=== PATIENT | female | born 1955 ===

== ENCOUNTER → 2019-12-18 | Outpatient (CLI) | payer OTHER ==
--- NOTE | 2019-12-19 13:26 | MM ---
Reason for exam: screening (asymptomatic). Last mammogram was performed 2 years and 8 months ago. Physical Findings: A clinical breast exam by your physician is recommended on an annual basis and results should be correlated with mammographic findings. MG Screening Mammo w CAD Bilateral CC and MLO view(s) were taken. Prior study comparison: April 27, 2017, mammogram, performed at [facility]. July 10, 2015, mammogram, performed at [facility]. There are scattered fibroglandular densities. No significant changes when compared with prior studies. ASSESSMENT: Benign, BI-RAD 2 RECOMMENDATION: Routine screening mammogram of both breasts in 1 year.
== END | disposition home or self-care (01) ==
LOC: RADMAMWWP 07:56
PROVIDERS: ATTEND Family Medicine
DX: Z12.31 Encounter for screening mammogram for malignant neoplasm of breast (principal)
CPT/HCPCS: 77067

== ENCOUNTER → 2020-06-17 | Outpatient (CLI) | payer OTHER ==
--- NOTE | 2020-06-17 15:44 | US ---
EXAMINATION TYPE: US thyroid st tissue head/neck DATE OF EXAM: 06/17/2020 COMPARISON: NONE CLINICAL HISTORY: E06.3 Autoimmune thyroiditis, patient diagnosed when she was 19. GLAND SIZE: Right Lobe: 2.9 x 0.8 x 1.1 cm Overall Parenchyma: heterogenous Left Lobe: 2.5 x 0.6 x 0.5 cm Overall Parenchyma: heterogeneous Isthmus Thickness: 0.3 cm NODULES RIGHT: # of nodules measured on right: 0 LEFT: # of nodules measured on left: 0 ISTHMUS: # of nodules measured in the isthmus: Bilateral neck scanned, no evidence of lymphadenopathy. IMPRESSION: 1. Heterogenous small thyroid. No suspicious nodules
== END | disposition home or self-care (01) ==
LOC: RADUSWWP 12:14
PROVIDERS: ATTEND Family Medicine
DX: R93.89 Abnormal findings on diagnostic imaging of other specified body structures (principal); E06.3 Autoimmune thyroiditis
CPT/HCPCS: 76536

== ENCOUNTER 2020-07-29 06:28 | Day surgery (SDC) | payer OTHER ==
[2020-07-25 12:59] VITALS: BMI 53.9
[2020-07-29 06:58] VITALS: TEMP 98.3
[2020-07-29] MEDS ORDERED: LACTATED RINGERS 1,000 ML IV ONE (07:06)
[2020-07-29] MEDS ORDERED: PROPOFOL 10 MG/ML 20 ML VIAL IV ONE (07:44)
--- NOTE | 2020-07-29 08:14 | P.PCN ---
Date of Procedure: 07/29/20 Description of Procedure: BRIEF HISTORY: Patient is a 65-year-old female presenting for outpatient colonoscopy for screening for malignant neoplasm of the colon. Last colonoscopy 10 years ago. No family history of colon cancer. No change in bowel habits. PROCEDURE PERFORMED: Colonoscopy with polypectomy. PREOPERATIVE DIAGNOSIS: Screening for malignant neoplasm of the colon, last colonoscopy 10 years ago. ESTIMATED BLOOD LOSS: Minimal. IV sedation per Anesthesia. PROCEDURE: After informed consent was obtained, the patient, was brought into the endoscopy unit. IV sedation was administered by Anesthesia under continuous monitoring. Digital rectal examination was normal. Initially the Olympus CF-190 flexible video colonoscope was then inserted in the rectum, gradually advanced into the cecum without any difficulty. Careful examination was performed as the scope was gradually being withdrawn. Ileocecal valve and the appendiceal orifice were visualized and appeared normal. Prep was excellent. Mucosa of the cecum, ascending colon, transverse colon, descending colon, sigmoid colon, and rectum appeared normal. One diminutive 2 mm rectal polyp removed cold forcep polypectomy. A few scattered diverticula noted in the sigmoid colon. Retroflexion was performed in the rectum and no lesions were seen, low-grade internal hemorrhoids. The patient tolerated the procedure well. IMPRESSION: Diminutive rectal polyp removed with cold forceps. Mild sigmoid diverticulosis. RECOMMENDATIONS: Findings of this examination were discussed with the patient and her family. Okay to resume diet. Okay to resume medications. Await pathology from polypectomy. Recommend repeat colonoscopy in 7 years pending pathology from polypectomy.
[2020-07-29 08:16] VITALS: RESP 16
[2020-07-29 08:34] VITALS: BP 137/76; PULSE 56
== END 2020-07-29 09:07 | disposition home or self-care (01) ==
LOC: ORWHC2ENDO 06:28
PROVIDERS: ATTEND Internal Medicine
DX: Z12.11 Encounter for screening for malignant neoplasm of colon (principal); K62.1 Rectal polyp; K57.30 Diverticulosis of large intestine without perforation or abscess without bleeding; K64.8 Other hemorrhoids; G47.33 Obstructive sleep apnea (adult) (pediatric); E07.9 Disorder of thyroid, unspecified; K21.9 Gastro-esophageal reflux disease without esophagitis; E66.01 Morbid (severe) obesity due to excess calories; Z87.891 Personal history of nicotine dependence; Z79.899 Other long term (current) drug therapy; Z79.890 Hormone replacement therapy; Z90.710 Acquired absence of both cervix and uterus; Z98.890 Other specified postprocedural states; Z96.651 Presence of right artificial knee joint; Z99.89 Dependence on other enabling machines and devices; Z68.43 Body mass index [BMI] 50.0-59.9, adult
CPT/HCPCS: 88305; 45380; J2704

== ENCOUNTER 2020-10-11 16:40 | Emergency (ER) | payer OTHER ==
[2020-10-11 16:46] VITALS: TEMP 98.2
[2020-10-11] MEDS ORDERED: SODIUM CHLORIDE 0.9% 1,000 ML IV STA (17:11)
[2020-10-11] MEDS ORDERED: ACETAMINOPHEN TAB 325 MG TAB PO STA (17:12)
--- NOTE | 2020-10-11 17:21 | ED ---
Dizziness HPI - General Chief Complaint: Syncope Stated Complaint: Fall, Head injury Time Seen by Provider: 10/11/20 16:48 Source: patient, family ( at bedside), RN notes reviewed Mode of arrival: wheelchair Limitations: no limitations - History of Present Illness Initial Comments: 65-year-old white female patient presents to the emergency room with her after experiencing a syncopal episode while having a bowel movement on the toilet approximately one hour prior to arrival. Patient states that she was in the bathroom with some abdominal pain after something she ate today gave her abdominal cramps. States was having diarrhea when she became nauseated and passed out. states he heard the fall yelled out to her, when she did not respond, he found her on the bathroom floor. He states that he called out to her a couple times as he tried to push the door open and after 30 seconds she became alert. Pt complaining of a bump on the back of her head. Patient denies any chest pain, shortness of breath, fevers or recent illness. Patient with history of GERD, hypertension, hypothyroidism, and sleep apnea. Patient denies use of any anticoagulants or antiplatelets. Patient states she put ice on occipital hematoma which has relieved some of the pain. Patient denies cervical spine tenderness Timing: sudden onset History of Same: No Severity: mild Improves With: other (ice) Worsens With: nothing Associated Symptoms: other (nausea, diarrhea) - Related Data Home Medications Medication Instructions Recorded Confirmed Amlodipine Besylate/Valsartan 1 each PO DAILY 07/25/20 07/29/20 [Amlodipine-Valsartan 5-160 mg] Ascorbic Acid [Vitamin C] 500 mg PO DAILY 07/25/20 07/29/20 Cholecalciferol [Vitamin D3 (25 125 mcg PO DAILY 07/25/20 07/29/20 Mcg = 1000 Iu)] Escitalopram Oxalate [Lexapro] 10 mg PO DAILY 07/25/20 07/29/20 Hydrochlorothiazide 12.5 mg PO DAILY 07/25/20 07/29/20 [hydroCHLOROthiazide] Levothyroxine Sodium [Synthroid] 175 mcg PO MOTUWETHFRSA 07/25/20 07/29/20 Metoprolol Succinate (ER) [Toprol 50 mg PO DAILY 07/25/20 07/29/20 Xl] Omeprazole [PriLOSEC] 20 mg PO AC-BRKFST 07/25/20 07/29/20 Red Yeast Rice 1,200 mg PO BID 07/25/20 07/29/20 Allergies Allergy/AdvReac Type Severity Reaction Status Date / Time strawberry Allergy Rash/Hives Verified 10/11/20 16:46 tree nut Allergy Anaphylaxis Verified 10/11/20 16:46 Review of Systems ROS Statement: Those systems with pertinent positive or pertinent negative responses have been documented in the HPI. ROS Other: All systems not noted in ROS Statement are negative. Past Medical History Past Medical History: GERD/Reflux, Hypertension, Sleep Apnea/CPAP/BIPAP, Thyroid Disorder Additional Past Medical History / Comment(s): C PAP History of Any Multi-Drug Resistant Organisms: None Reported Past Surgical History: Hysterectomy, Joint Replacement Additional Past Surgical History / Comment(s): RIGHT HEEL SPUR REMOVED, BILATERAL CARPAL TUNNEL RELEASE,TOTAL RIGHT KNEE Past Anesthesia/Blood Transfusion Reactions: No Reported Reaction Past Psychological History: Depression Smoking Status: Former smoker Past Alcohol Use History: None Reported Past Drug Use History: None Reported - Past Family History Mother Family Medical History: No Reported History General Exam Limitations: no limitations General appearance: alert, in no apparent distress Head exam: Present: other (hematoma) Eye exam: Present: normal appearance, PERRL, EOMI. Absent: scleral icterus, conjunctival injection, nystagmus, periorbital swelling, periorbital tenderness ENT exam: Present: normal exam, normal oropharynx, mucous membranes moist Neck exam: Present: normal inspection, full ROM. Absent: tenderness, meningismus, lymphadenopathy Respiratory exam: Present: normal lung sounds bilaterally. Absent: respiratory distress, wheezes, rales, rhonchi, stridor, chest wall tenderness, accessory muscle use Cardiovascular Exam: Present: regular rate, normal rhythm, normal heart sounds. Absent: systolic murmur, diastolic murmur, rubs, gallop, clicks, JVD GI/Abdominal exam: Present: soft, normal bowel sounds. Absent: distended, tenderness, guarding, rebound, rigid Extremities exam: Present: normal inspection, full ROM, normal capillary refill. Absent: tenderness, pedal edema, joint swelling, calf tenderness Left Knee exam: Present: abrasion Back exam: Present: normal inspection. Absent: tenderness, CVA tenderness (R), CVA tenderness (L) Neurological exam: Present: alert, oriented X3, CN II-XII intact Psychiatric exam: Present: normal affect, normal mood Skin exam: Present: warm, dry, intact, normal color. Absent: rash, cyanosis, diaphoretic, erythema, pallor, mottled Course Vital Signs 10/11/20 16:43 Temperature 98.2 F Pulse Rate 62 Respiratory 18 Rate Blood Pressure 159/81 O2 Sat by Pulse 99 Oximetry - Reevaluation(s) Reevaluation #1: 10/11/20 18:13 Patient feeling better after Tylenol. Being taken to CAT scan now Time: 18:13 Reevaluation #2: 10/11/20 18:40 Patient up ambulating with steady gait to the bathroom EKG Findings - EKG Results: EKG: WNL, sinus rhythm (Ventricular rate of 59, MD interval 0.154, QRS of 0.96, QTc of .433) EKG shows: bradycardia Medical Decision Making - Medical Decision Making EKG shows sinus bradycardia with ventricular rate of 59 otherwise normal EKG. CBC within normal limits. Chest x-ray shows no acute pulmonary disease, no masses, no infiltrates. CT of brain and C-spine showed no midline shift or intracranial hemorrhage. Ventricles are normal. Patient feeling back to normal . This was likely a vasovagal episode. Will discharge home with her injections to follow-up with her primary care doctor in 1 week. - Lab Data Result diagrams: 10/11/20 17:11 10/11/20 17:11 Lab Results 10/11/20 10/11/20 10/11/20 Range/Units 17:11 17:11 17:11 WBC 7.6 (3.8-10.6) k/uL RBC 4.91 (3.80-5.40) m/uL Hgb 15.1 (11.4-16.0) gm/dL Hct 43.5 (34.0-46.0) % MCV 88.6 (80.0-100.0) fL MCH 30.8 (25.0-35.0) pg MCHC 34.7 (31.0-37.0) g/dL RDW 12.9 (11.5-15.5) % Plt Count 212 (150-450) k/uL MPV 7.7 Neutrophils % 72 % Lymphocytes % 18 % Monocytes % 6 % Eosinophils % 3 % Basophils % 1 % Neutrophils # 5.5 (1.3-7.7) k/uL Lymphocytes # 1.4 (1.0-4.8) k/uL Monocytes # 0.4 (0-1.0) k/uL Eosinophils # 0.2 (0-0.7) k/uL Basophils # 0.1 (0-0.2) k/uL PT 10.1 (9.0-12.0) sec INR 0.9 (<1.2) APTT 23.1 (22.0-30.0) sec Sodium 139 (137-145) mmol/L Potassium 3.7 (3.5-5.1) mmol/L Chloride 103 (98-107) mmol/L Carbon Dioxide 28 (22-30) mmol/L Anion Gap 8 mmol/L BUN 16 (7-17) mg/dL Creatinine 0.92 (0.52-1.04) mg/dL Est GFR (CKD-EPI)AfAm 77 (>60 ml/min/1.73 sqM) Est GFR (CKD-EPI)NonAf 67 (>60 ml/min/1.73 sqM) Glucose 109 H (74-99) mg/dL Calcium 9.9 (8.4-10.2) mg/dL Total Bilirubin 0.4 (0.2-1.3) mg/dL AST 38 H (14-36) U/L ALT 32 (4-34) U/L Alkaline Phosphatase 111 (38-126) U/L Troponin I (0.000-0.034) ng/mL Total Protein 7.7 (6.3-8.2) g/dL Albumin 4.5 (3.5-5.0) g/dL Urine Color Urine Appearance (Clear) Urine pH (5.0-8.0) Ur Specific [place] (1.001-1.035) Urine Protein (Negative) Urine Glucose (UA) (Negative) Urine Ketones (Negative) Urine Blood (Negative) Urine Nitrite (Negative) Urine Bilirubin (Negative) Urine Urobilinogen (<2.0) mg/dL Ur Leukocyte Esterase (Negative) Urine RBC (0-5) /hpf Urine WBC (0-5) /hpf Urine Bacteria (None) /hpf Urine Mucus (None) /hpf 10/11/20 10/11/20 Range/Units 17:11 17:35 WBC (3.8-10.6) k/uL RBC (3.80-5.40) m/uL Hgb (11.4-16.0) gm/dL Hct (34.0-46.0) % MCV (80.0-100.0) fL MCH (25.0-35.0) pg MCHC (31.0-37.0) g/dL RDW (11.5-15.5) % Plt Count (150-450) k/uL MPV Neutrophils % % Lymphocytes % % Monocytes % % Eosinophils % % Basophils % % Neutrophils # (1.3-7.7) k/uL Lymphocytes # (1.0-4.8) k/uL Monocytes # (0-1.0) k/uL Eosinophils # (0-0.7) k/uL Basophils # (0-0.2) k/uL PT (9.0-12.0) sec INR (<1.2) APTT (22.0-30.0) sec Sodium (137-145) mmol/L Potassium (3.5-5.1) mmol/L Chloride (98-107) mmol/L Carbon Dioxide (22-30) mmol/L Anion Gap mmol/L BUN (7-17) mg/dL Creatinine (0.52-1.04) mg/dL Est GFR (CKD-EPI)AfAm (>60 ml/min/1.73 sqM) Est GFR (CKD-EPI)NonAf (>60 ml/min/1.73 sqM) Glucose (74-99) mg/dL Calcium (8.4-10.2) mg/dL Total Bilirubin (0.2-1.3) mg/dL AST (14-36) U/L ALT (4-34) U/L Alkaline Phosphatase (38-126) U/L Troponin I <0.012 (0.000-0.034) ng/mL Total Protein (6.3-8.2) g/dL Albumin (3.5-5.0) g/dL Urine Color Light Yellow Urine Appearance Clear (Clear) Urine pH 5.0 (5.0-8.0) Ur Specific [place] 1.007 (1.001-1.035) Urine Protein Negative (Negative) Urine Glucose (UA) Negative (Negative) Urine Ketones Negative (Negative) Urine Blood Negative (Negative) Urine Nitrite Negative (Negative) Urine Bilirubin Negative (Negative) Urine Urobilinogen <2.0 (<2.0) mg/dL Ur Leukocyte Esterase Small H (Negative) Urine RBC 1 (0-5) /hpf Urine WBC 7 H (0-5) /hpf Urine Bacteria Many H (None) /hpf Urine Mucus Rare H (None) /hpf Disposition Clinical Impression: Vasovagal syncope Disposition: HOME SELF-CARE Condition: Good Instructions (If sedation given, give patient instructions): Concussion (ED), Syncope (ED) Additional Instructions: Return if any worsening symptoms including worsening headache. Take Tylenol for pain and increase your fluid intake. Follow-up with the primary care doctor in 1 week. Is patient prescribed a controlled substance at d/c from ED?: No Referrals: Betty Munoz MD [Primary Care Provider] - 1-2 days Time of Disposition: 19:33
[2020-10-11 17:47] LABS: Basophils # (A) 0.1 k/uL (0-0.2); Basophils % (A) 1 %; Eosinophils # (A) 0.2 k/uL (0-0.7); Eosinophils % (A) 3 %; HCT 43.5 % (34.0-46.0); HGB 15.1 gm/dL (11.4-16.0); Lymphocytes # (A) 1.4 k/uL (1.0-4.8); Lymphocytes % (A) 18 %; MCH 30.8 pg (25.0-35.0); MCHC 34.7 g/dL (31.0-37.0); MCV 88.6 fL (80.0-100.0); Mean Platelet Volume 7.7; Monocytes # (A) 0.4 k/uL (0-1.0); Monocytes % (A) 6 %; Neutrophils # (A) 5.5 k/uL (1.3-7.7); Neutrophils % (A) 72 %; Platelet Count 212 k/uL (150-450); RBC 4.91 m/uL (3.80-5.40); RDW 12.9 % (11.5-15.5); WBC 7.6 k/uL (3.8-10.6)
[2020-10-11 17:59] LABS: INR 0.9 (<1.2); Partial Thromboplastin Time 23.1 sec (22.0-30.0); Prothrombin Time 10.1 sec (9.0-12.0)
--- NOTE | 2020-10-11 17:59 | XR ---
EXAMINATION TYPE: XR chest 2V DATE OF EXAM: 10/11/2020 COMPARISON: NONE HISTORY: Syncope TECHNIQUE: 2 views FINDINGS: There is no heart failure nor confluent pneumonic infiltrate. Costophrenic angles are clear . There are no hilar masses. Bony thorax is intact. IMPRESSION: No active cardiopulmonary disease.
[2020-10-11 18:04] LABS: Albumin 4.5 g/dL (3.5-5.0); Calcium 9.9 mg/dL (8.4-10.2); Potassium 3.7 mmol/L (3.5-5.1); Total Bilirubin 0.4 mg/dL (0.2-1.3); Total Protein 7.7 g/dL (6.3-8.2)
[2020-10-11 18:54] LABS: Appearance,Urine Clear (Clear); Bacteria,Urine Many /hpf; Bilirubin,Urine Negative (Negative); Blood,Urine Negative (Negative); Color,Urine Light Yellow; Glucose,Urine (UA) Negative (Negative); Ketones,Urine Negative (Negative); Leukocyte Esterase,Urine Small (Negative); Mucus,Urine Rare /hpf; Nitrite,Urine Negative (Negative); Protein,Urine Negative (Negative); RBC,Urine 1 /hpf (0-5); Specific Gravity,Urine 1.007 (1.001-1.035); Urobilinogen,Urine <2.0 mg/dL (<2.0); WBC,Urine 7 /hpf (0-5)
--- NOTE | 2020-10-11 19:13 | CT ---
EXAMINATION TYPE: CT brain heikeine wo con DATE OF EXAM: 10/11/2020 COMPARISON: None HISTORY: Sycope, injury to back of head CT DLP: 4.9 mGycm Automated exposure control for dose reduction was used. Images were obtained of the brain without contrast. Ventricles and sulci appear normal. There is no mass effect nor midline shift. There is no sign of in tracranial hemorrhage. Calvarium is intact. Skull base is intact. The cervical vertebra have normal alignment. Posterior elements are intact. There is mild spurring of the endplates from C4 to C7. Facet joints are intact. There is minimal cervical hypertrophic facet a rthropathy. Prevertebral soft tissues are intact. IMPRESSION: Negative CT scan of the brain. Minimal degenerative changes in the cervical spine. No fracture.
[2020-10-11 19:52] VITALS: BP 127/66; PULSE 61; RESP 16
== END 2020-10-11 19:52 | disposition home or self-care (01) ==
LOC: EC 16:40
DX: R55 Syncope and collapse (principal); K21.9 Gastro-esophageal reflux disease without esophagitis; I10 Essential (primary) hypertension; G47.30 Sleep apnea, unspecified; E03.9 Hypothyroidism, unspecified; Z87.891 Personal history of nicotine dependence
CPT/HCPCS: 36415; 70450; 71046; 72125; 80053; 81001; 84484; 85025; 85610; 85730; 93005; 96360; 99284

== ENCOUNTER → 2021-11-23 | Outpatient (CLI) | payer OTHER ==
--- NOTE | 2021-11-23 15:53 | XR ---
Lumbar spine HISTORY: M 54.50 3 views the lumbar spine No comparisons Lumbar vertebral bodies show preserved height and alignment. Bone mineralization is reduced. There is multilevel spondylosis present. Sclerosis in the posterior elements is consistent with facet arthrop athy. Loss of disc height present L3-4, L5-S1. IMPRESSION: Degenerative disc disease, osteopenia, facet arthropathy
== END | disposition home or self-care (01) ==
LOC: RADXRMAIN 10:48
PROVIDERS: ATTEND Family Medicine
DX: M51.36 Other intervertebral disc degeneration, lumbar region (principal); M85.88 Other specified disorders of bone density and structure, other site; M47.816 Spondylosis without myelopathy or radiculopathy, lumbar region
CPT/HCPCS: 72100

== ENCOUNTER → 2021-12-03 | Outpatient (CLI) | payer OTHER ==
--- NOTE | 2021-12-03 11:41 | NM ---
EXAMINATION TYPE: NM stress lexiscan cardiolite DATE OF EXAM: 12/03/2021 COMPARISON: NONE HISTORY: Shortness of breath TECHNIQUE: After the intravenous administration of 10.2 mCi Tc 99m Sestamibi - Cardiolite resting SP ECT images acquired 45 minutes post injection. The patient received 0.4mg Lexiscan, 26.5 mCi Tc 99m Sestamibi - Stress images obtained [address] injection FINDINGS: Review of stress and rest SPECT images demonstrates findings suspicious for a anterior wall area of s tress-induced reversible ischemia.. Gated analysis shows normal wall motion with an estimated left v entricular ejection fraction of 72 %. Report called to referring clinician 11:38 AM and 12/03/2021. IMPRESSION: 1. Findings are suggestive of a area of stress-induced anemia anterior wall.
--- NOTE | 2021-12-04 10:50 | CA ---
Lexiscan Nuclear Stress Test Report Name: Jaylan Krishnamurthy Exam Date: 12/03/2021 09:48 Exam Location: [place] Stress Ht (in): 62 Wt (lb): 320 BSA: 2.33 Ordering Phys: Tobin Morrissey Referring Phys: JAMES,, Technologist: Conor Wolfe Age: 66 Gender: F : 1955 Procedure CPT: Indications: severly decreased exercise capacity ICD-10 Codes: Patient History: CHEST PAIN, DIFFICULTY IN BREATHING, PALPITATIONS, HTN, ELEVATED CHOLESTEROL LEVELS, FAMILY HX OF HEART DISEASE, FORMER SMOKER QUIT 25 YEARS, 2.5 PPD X 25 YEARS Medications: LEVOTHYROXINE,,,,,, AMLODIPINE,,,,,, HZTZ,,,,,, OMEPRAZOLE,,,,,, MULTIVITAMIN,,,,,, VITAMIN C,,,,,, VITAMIN D3,,,,,, ESCITALOPRAM,,,,,, EZETIMIBE,,,,, Meds past 24 hrs: Pretest Chest Pain: STRESS TEST Lexiscan Protocol Exercise Duration (min:sec): 01:[address] Depressions (mm): Angina Score: Ruiz Score: Resting HR (bpm): 63 Peak HR (bpm): 92 Resting BP (mmHg): 136 / 71 Peak BP (mmHg): / 80 MPHR: 156 Target HR: 133 % MPHR: 59 METS: 1.0 Total Dose: Peak Dose: Atropine: Double Product: BP Response: Stress Termination: Completion of Protocol Stress Symptoms: NO SYMPTOMS Stress Summary: ECG ANALYSIS Resting ECG: Stress ECG: CONCLUSIONS Normal heart rate and blood pressure response at baseline Normal 12-lead EKG at baseline No ECG evidence for ischemia during Lexiscan infusion Heart rate and blood pressure normal, asymptomatic during Lexiscan infusion Dr. Henry Echevarria MD (Electronically Signed) Final Date: 04 December 2021 10:50
== END | disposition home or self-care (01) ==
LOC: RADNMMAIN 08:04
PROVIDERS: ATTEND Family Medicine
DX: R06.02 Shortness of breath (principal)
CPT/HCPCS: 93017; 78452; A9500

== ENCOUNTER → 2021-12-23 | Outpatient (CLI) | payer OTHER ==
[2021-12-23 18:29] LABS: HCT 39.3 % (37.2-46.3); HGB 13.8 g/dL (12.0-15.0); MCH 33.5 pg (27.0-32.0); MCHC 35.1 g/dL (32.0-37.0); MCV 95.4 fL (80.0-97.0); Mean Platelet Volume 11.2 fL (9.5-12.2); NRBC Per 100 WBC 0 /100 WBCS (0.0-0.0); Platelet Count 205 X 10*3/uL (140-440); RBC 4.12 X 10*6/uL (4.10-5.20); RDW 12.2 % (11.5-14.5); WBC 7.36 X 10*3/uL (4.50-10.00)
[2021-12-23 23:30] LABS: African American GFR (CKD) 78.3 (60.0-200.0); Anion Gap 14.5 mmol/L (10.00-18.00); Blood Urea Nitrogen 15.4 mg/dL (9.0-27.0); Carbon Dioxide 25.5 mmol/L (20.0-27.5); Non-African American GFR(CKD) 67.6 (60.0-200.0)
== END | disposition home or self-care (01) ==
LOC: LABPAT 12:26
PROVIDERS: ATTEND Internal Medicine
DX: Z01.812 Encounter for preprocedural laboratory examination (principal); R94.31 Abnormal electrocardiogram [ECG] [EKG]; R09.89 Other specified symptoms and signs involving the circulatory and respiratory systems; R06.02 Shortness of breath
CPT/HCPCS: 80051; 82565; 84520; 85027

== ENCOUNTER 2022-01-08 07:34 | Day surgery (SDC) | payer OTHER ==
[~2022-01-08 07:34] MED LIST: ALPRAZolam 0.25 MG TAB PO PRN; ALPRAZolam 0.5 MG TAB PO PRN; ASPIRIN 325 MG TAB PO STA; ATORVASTATIN 80 MG TAB PO STA; HEPARIN SODIUM,PORCINE 10,000 UNIT in SODIUM CHLORIDE 0.9% 1,000 ML IRRIGATION PRN; HEPARIN SODIUM,PORCINE 2,500 UNIT in SODIUM CHLORIDE 0.9% 250 ML IRRIGATION PRN; NITROGLYCERIN SL TABS 0.4 MG TAB SUBLINGUAL PRN; SODIUM CHLORIDE 0.9% 1,000 ML in EMPTY BAG 1 BAG IV SCH
[2022-01-08] MEDS ORDERED: SODIUM CHLORIDE 0.9% 1,000 ML IV ONE (07:57)
[2022-01-08 08:12] VITALS: TEMP 98.4
[2022-01-08] MEDS ORDERED: VERAPAMIL 2.5 MG/ML 2 ML AMP ONE (09:31)
[2022-01-08] MEDS ORDERED: fentaNYL (PF) 50 MCG/ML 2 ML AMP ONE (09:41)
[2022-01-08] MEDS: MIDAZOLAM 2 MG/2 ML VIAL IV ONE ×2 (09:49→09:56)
[2022-01-08] MEDS: fentaNYL (PF) 50 MCG/ML 2 ML AMP IV ONE ×2 (09:49→09:56)
[2022-01-08] MEDS ORDERED: LIDOCAINE 1% INJ 10MG/ML (5 ML VIAL-PF) SQ ONE (09:51)
[2022-01-08] MEDS ORDERED: VERAPAMIL SYRINGE (5 MG/10 ML) INTRAARTER ONE (09:54)
[2022-01-08] MEDS ORDERED: HEPARIN SODIUM 1,000 UN/ML (10ML VL) IV ONE (09:56)
[2022-01-08] MEDS ORDERED: IOPAMIDOL-370 125ML BTL INJ ONE (10:00)
--- NOTE | 2022-01-08 10:58 | P.CARDCATH ---
Description of Procedure: PROCEDURES PERFORMED: Left heart catheterization, bilateral coronary angiography INDICATION: Abnormal stress test CONSENT:I have discussed the risks, benefits and alternative therapies for the above-mentioned procedure and for both sedation/analgesia as well as necessary blood product administration, if indicated, as they pertain to this patient. The patient has indicated understanding and acceptance of the risks and procedures discussed. PROCEDURE: After the risks, benefits and alternatives of the above mentioned procedure explained in detail with the patient, informed consent was obtained. Patient was taken to the catheterization lab and prepped and draped in usual fashion. 1% lidocaine was used to anesthetize the right radial artery. A 6- Barbadian sheath was placed in the right radial artery using modified Seldinger technique. Left coronary angiography was performed with a 5-Barbadian JL 3.5 catheter and right coronary angiography was performed with a 5-Barbadian JR5 catheter in various views. A 5-Barbadian FR5 catheter was inserted into the left ventricle and pressure measurements were obtained. The right radial sheath was removed and a TR band was placed with hemostasis achieved. The patient tolerated the procedure well. Patient was transported back to the post catheterization holding area in stable condition. Conscious Sedation: Patient was monitored under the direct supervision of vision of myself for conscious sedation using Versed and fentanyl for a total duration of 16 minutes HEMODYNAMICS: Aorta: 142/78 LV: 149/8, LVEDP 18, mean pullback gradient 13 mmHg SELECTIVE CORONARY ARTERIOGRAPHY: LEFT MAIN: The left main is a large caliber vessel which bifurcates into the LAD and circumflex. There is no significant stenosis. LEFT ANTERIOR DESCENDING CORONARY ARTERY: LAD is a large caliber vessel which wraps around to the apex. There is no significant stenosis. LEFT CIRCUMFLEX CORONARY ARTERY: Left circumflex is a moderate caliber vessel without significant stenosis. RIGHT CORONARY ARTERY: The right coronary artery is a large caliber vessel which gives off a PDA and PLV branch and is the dominant vessel. There is no significant stenosis. FINAL IMPRESSION: 1. Normal coronary arteries as described above. 2. Mildly elevated left sided filling pressures 3. Mild aortic stenosis with mean gradient 13 mmHg PLAN: 1. Aggressive risk factor modification per most recent ACC/AHA guidelines. 2. Follow-up in the office in 1-2 weeks.
[2022-01-08 12:09] VITALS: BP 120/69; PULSE 59
[2022-01-08 13:02] VITALS: RESP 16
== END 2022-01-08 13:02 | disposition home or self-care (01) ==
LOC: CATHCVL 07:34
PROVIDERS: ATTEND Internal Medicine
DX: R06.02 Shortness of breath (principal); R94.31 Abnormal electrocardiogram [ECG] [EKG]; R94.39 Abnormal result of other cardiovascular function study; R06.09 Other forms of dyspnea; I35.0 Nonrheumatic aortic (valve) stenosis; I10 Essential (primary) hypertension; E78.5 Hyperlipidemia, unspecified; Z82.49 Family history of ischemic heart disease and other diseases of the circulatory system; E03.9 Hypothyroidism, unspecified; E66.9 Obesity, unspecified
CPT/HCPCS: 93458; 87635; C1769; C1894; J2250; J2001; J3010; J1644; Q9967

== ENCOUNTER → 2022-03-12 | Outpatient (CLI) | payer OTHER ==
[2022-03-12 10:35] LABS: Basophils # (A) 0.04 X 10*3/uL (0.00-0.10); Basophils % (A) 0.7 %; Eosinophils # (A) 0.15 X 10*3/uL (0.04-0.35); Eosinophils % (A) 2.7 %; HCT 38.7 % (37.2-46.3); HGB 13.9 g/dL (12.0-15.0); Immature Grans, Automated 0.2 %; Lymphocytes # (A) 1.76 X 10*3/uL (0.90-5.00); Lymphocytes % (A) 31.4 %; MCH 33.3 pg (27.0-32.0); MCHC 35.9 g/dL (32.0-37.0); MCV 92.6 fL (80.0-97.0); Mean Platelet Volume 10.6 fL (9.5-12.2); Monocytes # (A) 0.46 X 10*3/uL (0.20-1.00); Monocytes % (A) 8.2 %; NRBC Per 100 WBC 0 /100 WBCS (0.0-0.0); Neutrophils # (A) 3.18 X 10*3/uL (1.80-7.70); Neutrophils % (A) 56.8 %; Platelet Count 207 X 10*3/uL (140-440); RBC 4.18 X 10*6/uL (4.10-5.20); RDW 12.3 % (11.5-14.5)
[2022-03-12 10:59] LABS: ALT 52 U/L (8-44); AST 36 U/L (13-35); African American GFR (CKD) 78.3 (60.0-200.0); Albumin 4.3 g/dL (3.8-4.9); Albumin/Globulin Ratio 1.54 (1.60-3.17); Alkaline Phosphatase 67 U/L (41-126); Blood Urea Nitrogen 11.7 mg/dL (9.0-27.0); Calcium 9.5 mg/dL (8.7-10.3); Carbon Dioxide 27.5 mmol/L (20.0-27.5); Chloride 103 mmol/L (96-109); Chol/HDL Ratio 3.98 Ratio; Globulin 2.8 g/dL (1.6-3.3); Glucose 96 mg/dL (70-110); LDL Cholesterol,Calculated 93.7 mg/dL (0.0-131.0); Non-African American GFR(CKD) 67.6 (60.0-200.0); Potassium 3.7 mmol/L (3.5-5.5); Sodium 140 mmol/L (135-145); Total Protein 7.1 g/dL (6.2-8.2)
--- NOTE | 2022-03-15 07:49 | MM ---
Reason for Exam: Screening (asymptomatic). Last mammogram was performed 2 year(s) and 2 month(s) ago. Patient History: Menarche at age 15. First Full-Term at age 21. Hysterectomy at age 44. Risk Values: Kristi 5 year model risk: 1.2%. NCI Lifetime model risk: 4.7%. Prior Study Comparison: 07/10/2015 Screening Mammogram, [facility]. 04/27/2017 Screening Mammogram, [facility]. 12/18/2019 Bilateral Screening Mammogram, [facility]. Tissue Density: The breast tissue is almost entirely fat. Findings: Analyzed By CAD. There is no suspicious group of microcalcifications or new suspicious mass in either breast. Overall Assessment: Negative, BI-RAD 1 Management: Screening Mammogram of both breasts in 1 year. A clinical breast exam by your physician is recommended on an annual basis and results should be correlated with mammographic findings. [facility] will attempt to contact patient to return for supplemental views and ultrasound if indicated. Electronically signed and approved by: Randal Godinez DO
[2022-03-15 17:15] LABS: Hepatitis A Antibody IgM Nonreactive (Nonreactive); Hepatitis B Core IgM Nonreactive (Nonreactive); Hepatitis B Surface Antigen Nonreactive (Nonreactive); Hepatitis C IgG Antibody Nonreactive (Nonreactive)
== END | disposition home or self-care (01) ==
LOC: RADMAMWWP 07:12
PROVIDERS: ATTEND Internal Medicine
DX: Z12.31 Encounter for screening mammogram for malignant neoplasm of breast (principal); I10 Essential (primary) hypertension; E03.9 Hypothyroidism, unspecified
CPT/HCPCS: 77063; 77067; 80053; 80061; 80074; 84439; 84443; 85025

== ENCOUNTER 2022-03-18 06:36 | Emergency (ER) | payer MEDICARE, OTHER ==
[2022-03-18 06:42] VITALS: BP 135/69; RESP 16; TEMP 98.8
[2022-03-18] MEDS ORDERED: ONDANSETRON 4 MG/2 ML VIAL IVP STA (06:53)
[2022-03-18] MEDS ORDERED: SODIUM CHLORIDE 0.9% 2,000 ML IV STA (06:53)
[2022-03-18] MEDS ORDERED: KETOROLAC 15 MG/ML 1 ML VIAL IVP STA (06:53)
--- NOTE | 2022-03-18 07:31 | CT ---
EXAMINATION TYPE: CT abdomen pelvis wo con CT DLP: 2199 mGycm, Automated exposure control for dose reduction was used. DATE OF EXAM: 03/18/2022 7:19 AM COMPARISON: None CLINICAL INDICATION:Female, 66 years old with history of left flank pain; Lower pelvic pain TECHNIQUE: Standard CT of the abdomen and pelvis without IV or oral contrast. Lack of IV or oral co ntrast limits evaluation of solid and hollow organ viscera. Coronal and sagittal reformats were perfo rmed. FINDINGS: LOWER CHEST: Posterior dependent subsegmental atelectasis is noted. Mild cardiomegaly. ABDOMEN LIVER: Diffusely hypoattenuating parenchyma. GALLBLADDER AND BILE DUCTS: Unremarkable. PANCREAS: Unremarkable noncontrast appearance. SPLEEN: Unremarkable noncontrast appearance. ADRENAL GLANDS: Unremarkable noncontrast appearance. KIDNEYS AND URETERS: No evidence of hydronephrosis. Nonobstructive 1 cm calculus within the inferior pole of the right kidney. Edematous appearance of the left kidney without hydronephrosis. There is pe rinephric fat stranding extending into the pelvis. No perinephric fluid collection. No obstructing ca lculus. Left periureteral fat stranding identified. PELVIS BLADDER: Under distended, limiting evaluation. No bladder calculi. REPRODUCTIVE: The uterus is surgically absent. No suspicious adnexal mass. ABDOMEN & PELVIS STOMACH AND BOWEL: Stomach and duodenum are unremarkable. No focal wall thickening or surrounding inf lammatory changes. The appendix is within normal limits. No evidence of bowel obstruction. PERITONEUM: No evidence of pneumoperitoneum or free fluid. VASCULATURE: No evidence of aortic aneurysm. MUSCULOSKELETAL: No acute osseous abnormalities LYMPH NODES: No gross evidence for lymphadenopathy. SOFT TISSUE/ABDOMINAL WALL: Tiny fat filled umbilical hernia. IMPRESSION: 1. Edematous appearance of the left kidney with perinephric and periureteral fat stranding. No evide nce for hydronephrosis or obstructing calculus. Findings may relate to recently passed stone versus a scending infection. Correlation with urinalysis is recommended. 2. Nonobstructing 1 cm right renal calculus.
[2022-03-18 07:48] LABS: Appearance,Urine Cloudy (Clear); Bacteria,Urine Rare /hpf; Bilirubin,Urine 1+ (Negative); Blood,Urine Small (Negative); Color,Urine Dark Brown; Glucose,Urine (UA) Negative (Negative); Hyaline Casts,Urine 1 /lpf (0-2); Ketones,Urine Negative (Negative); Leukocyte Esterase,Urine Large (Negative); Mucus,Urine Moderate /hpf; Nitrite,Urine Positive (Negative); PH, Urine 5.5 (5.0-8.0); Protein,Urine 2+ (Negative); RBC,Urine 6 /hpf (0-5); Specific Gravity,Urine 1.023 (1.001-1.035); Squamous Epithelial Cell,Urine 4 /hpf (0-4); WBC,Urine 142 /hpf (0-5)
[2022-03-18 08:27] LABS: Basophils % (A) 0 %; Eosinophils # (A) 0.1 k/uL (0-0.7); Eosinophils % (A) 1 %; HCT 40.2 % (34.0-46.0); Lymphocytes # (A) 0.8 k/uL (1.0-4.8); Lymphocytes % (A) 7 %; MCH 31.2 pg (25.0-35.0); MCHC 34.9 g/dL (31.0-37.0); MCV 89.3 fL (80.0-100.0); Mean Platelet Volume 8.9; Monocytes # (A) 0.4 k/uL (0-1.0); Monocytes % (A) 3 %; Neutrophils # (A) 11.1 k/uL (1.3-7.7); Neutrophils % (A) 88 %; Platelet Count 156 k/uL (150-450); RDW 12.7 % (11.5-15.5); WBC 12.7 k/uL (3.8-10.6)
[2022-03-18 08:54] LABS: Calcium 9.3 mg/dL (8.4-10.2); Potassium 3.4 mmol/L (3.5-5.1); Total Protein 6.7 g/dL (6.3-8.2)
--- NOTE | 2022-03-18 11:03 | ED ---
General Adult HPI - General Chief complaint: Nausea/Vomiting/Diarrhea Stated complaint: Nausea Time Seen by Provider: 03/18/22 06:46 Source: patient, RN notes reviewed Mode of arrival: wheelchair Limitations: no limitations - History of Present Illness Initial comments: 66-year-old female presents emergency from with chief complaint of nausea vomiting UTI. Patient states she wasn't feeling well the last week started on Macrobid states it started on better but did have an episode of vomiting. Patient states her weakness is improving. She has no chest pain or shortness breath no reported fever today. Patient denies any extremity weakness no heada gail no dizziness. Patient does have left lower back pain. - Related Data Home Medications Medication Instructions Recorded Confirmed Ascorbic Acid [Vitamin C] 500 mg PO DAILY 07/25/20 01/08/22 Cholecalciferol [Vitamin D3 (25 2,000 unit PO DAILY 07/25/20 01/08/22 Mcg = 1000 Iu)] Escitalopram Oxalate [Lexapro] 20 mg PO DAILY 07/25/20 01/08/22 Levothyroxine Sodium [Synthroid] 150 mcg PO [id number] 07/25/20 01/08/22 Metoprolol Succinate (ER) [Toprol 25 mg PO DAILY 07/25/20 01/08/22 Xl] Omeprazole [PriLOSEC] 20 mg PO AC-BRKFST 07/25/20 01/08/22 hydroCHLOROthiazide 12.5 mg PO DAILY 07/25/20 01/08/22 Amlodipine Besylate/Valsartan 0.5 tab PO DAILY 01/06/22 01/08/22 [Amlodipine-Valsartan 10-160 mg] Aspirin 81 mg PO DAILY 01/06/22 01/08/22 Ezetimibe [Zetia] 10 mg PO HS 01/06/22 01/08/22 Multivitamins, Thera [Multivitamin 1 tab PO DAILY 01/06/22 01/08/22 (formulary)] Previous Rx's Medication Instructions Recorded Cephalexin [Keflex] 500 mg PO Q8HR #30 cap 03/18/22 Ondansetron Odt [Zofran Odt] 4 mg PO Q8HR PRN #10 tab 03/18/22 Allergies Allergy/AdvReac Type Severity Reaction Status Date / Time strawberry Allergy Rash/Hives Verified 03/18/22 06:38 tree nut Allergy Anaphylaxis Verified 03/18/22 06:38 Review of Systems ROS Statement: Those systems with pertinent positive or pertinent negative responses have been documented in the HPI. ROS Other: All systems not noted in ROS Statement are negative. Past Medical History Past Medical History: GERD/Reflux, Hyperlipidemia, Hypertension, Osteoarthritis (OA), Sleep Apnea/CPAP/BIPAP, Thyroid Disorder Additional Past Medical History / Comment(s): recent SOB w/exertion, heart palpitations, uses CPAP, frequent back pain History of Any Multi-Drug Resistant Organisms: None Reported Past Surgical History: Hysterectomy, Joint Replacement, Orthopedic Surgery Additional Past Surgical History / Comment(s): RIGHT HEEL SPUR REMOVED, BILATERAL CARPAL TUNNEL RELEASE,TOTAL RIGHT KNEE Past Anesthesia/Blood Transfusion Reactions: No Reported Reaction Past Psychological History: Depression Smoking Status: Former smoker - Past Family History Mother Family Medical History: No Reported History General Exam Limitations: no limitations General appearance: alert, in no apparent distress Head exam: Present: atraumatic, normocephalic, normal inspection Eye exam: Present: normal appearance, PERRL, EOMI. Absent: scleral icterus, conjunctival injection, periorbital swelling ENT exam: Present: normal exam, normal oropharynx, mucous membranes moist Neck exam: Present: normal inspection, full ROM. Absent: tenderness, meningismus, lymphadenopathy Respiratory exam: Present: normal lung sounds bilaterally. Absent: respiratory distress, wheezes, rales, rhonchi, stridor Cardiovascular Exam: Present: regular rate, normal rhythm, normal heart sounds. Absent: systolic murmur, diastolic murmur, rubs, gallop, clicks GI/Abdominal exam: Present: soft, normal bowel sounds. Absent: distended, tenderness, guarding, rebound, rigid Back exam: Present: CVA tenderness (L). Absent: CVA tenderness (R) Course Vital Signs 03/18/22 06:39 Temperature 98.8 F Pulse Rate 89 Respiratory 16 Rate Blood Pressure 135/69 O2 Sat by Pulse 95 Oximetry Medical Decision Making - Medical Decision Making Lab urinalysis shows evidence of urinary tract infection. CT was obtained rule out kidney stone patient does have some inflammation on the left kidney concerning for pyelonephritis. Patient was given 2 g Rocephin blood culture drawn. Patient was offered admission for IV Imitrex she states she is comfortable with discharge return parameters were discussed. - Lab Data Result diagrams: 03/18/22 07:57 03/18/22 07:57 Lab Results 03/18/22 03/18/22 03/18/22 Range/Units 07:31 07:57 07:57 WBC 12.7 H (3.8-10.6) k/uL RBC 4.50 (3.80-5.40) m/uL Hgb 14.0 (11.4-16.0) gm/dL Hct 40.2 (34.0-46.0) % MCV 89.3 (80.0-100.0) fL MCH 31.2 (25.0-35.0) pg MCHC 34.9 (31.0-37.0) g/dL RDW 12.7 (11.5-15.5) % Plt Count 156 (150-450) k/uL MPV 8.9 Neutrophils % 88 % Lymphocytes % 7 % Monocytes % 3 % Eosinophils % 1 % Basophils % 0 % Neutrophils # 11.1 H (1.3-7.7) k/uL Lymphocytes # 0.8 L (1.0-4.8) k/uL Monocytes # 0.4 (0-1.0) k/uL Eosinophils # 0.1 (0-0.7) k/uL Basophils # 0.0 (0-0.2) k/uL Sodium 135 L (137-145) mmol/L Potassium 3.4 L (3.5-5.1) mmol/L Chloride 95 L (98-107) mmol/L Carbon Dioxide 25 (22-30) mmol/L Anion Gap 15 mmol/L BUN 18 H (7-17) mg/dL Creatinine 1.19 H (0.52-1.04) mg/dL Est GFR (CKD-EPI)AfAm 56 (>60 ml/min/1.73 sqM) Est GFR (CKD-EPI)NonAf 48 (>60 ml/min/1.73 sqM) Glucose 129 H (74-99) mg/dL Plasma Lactic Acid Rolf (0.7-2.0) mmol/L Calcium 9.3 (8.4-10.2) mg/dL Total Bilirubin 1.0 (0.2-1.3) mg/dL AST 32 (14-36) U/L ALT 40 H (4-34) U/L Alkaline Phosphatase 74 (38-126) U/L Total Protein 6.7 (6.3-8.2) g/dL Albumin 4.0 (3.5-5.0) g/dL Amylase 41 (30-110) U/L Lipase 46 (23-300) U/L Urine Color Dark Brown Urine Appearance Cloudy H (Clear) Urine pH 5.5 (5.0-8.0) Ur Specific [place] 1.023 (1.001-1.035) Urine Protein 2+ H (Negative) Urine Glucose (UA) Negative (Negative) Urine Ketones Negative (Negative) Urine Blood Small H (Negative) Urine Nitrite Positive H (Negative) Urine Bilirubin 1+ H (Negative) Urine Urobilinogen 4.0 (<2.0) mg/dL Ur Leukocyte Esterase Large H (Negative) Urine RBC 6 H (0-5) /hpf Urine WBC 142 H (0-5) /hpf Urine WBC Clumps Occasional H (None) /hpf Ur Squamous Epith Cells 4 (0-4) /hpf Urine Bacteria Rare H (None) /hpf Hyaline Casts 1 (0-2) /lpf Urine Mucus Moderate H (None) /hpf 03/18/22 Range/Units 07:57 WBC (3.8-10.6) k/uL RBC (3.80-5.40) m/uL Hgb (11.4-16.0) gm/dL Hct (34.0-46.0) % MCV (80.0-100.0) fL MCH (25.0-35.0) pg MCHC (31.0-37.0) g/dL RDW (11.5-15.5) % Plt Count (150-450) k/uL MPV Neutrophils % % Lymphocytes % % Monocytes % % Eosinophils % % Basophils % % Neutrophils # (1.3-7.7) k/uL Lymphocytes # (1.0-4.8) k/uL Monocytes # (0-1.0) k/uL Eosinophils # (0-0.7) k/uL Basophils # (0-0.2) k/uL Sodium (137-145) mmol/L Potassium (3.5-5.1) mmol/L Chloride (98-107) mmol/L Carbon Dioxide (22-30) mmol/L Anion Gap mmol/L BUN (7-17) mg/dL Creatinine (0.52-1.04) mg/dL Est GFR (CKD-EPI)AfAm (>60 ml/min/1.73 sqM) Est GFR (CKD-EPI)NonAf (>60 ml/min/1.73 sqM) Glucose (74-99) mg/dL Plasma Lactic Acid Rolf 1.1 (0.7-2.0) mmol/L Calcium (8.4-10.2) mg/dL Total Bilirubin (0.2-1.3) mg/dL AST (14-36) U/L ALT (4-34) U/L Alkaline Phosphatase (38-126) U/L Total Protein (6.3-8.2) g/dL Albumin (3.5-5.0) g/dL Amylase (30-110) U/L Lipase (23-300) U/L Urine Color Urine Appearance (Clear) Urine pH (5.0-8.0) Ur Specific [place] (1.001-1.035) Urine Protein (Negative) Urine Glucose (UA) (Negative) Urine Ketones (Negative) Urine Blood (Negative) Urine Nitrite (Negative) Urine Bilirubin (Negative) Urine Urobilinogen (<2.0) mg/dL Ur Leukocyte Esterase (Negative) Urine RBC (0-5) /hpf Urine WBC (0-5) /hpf Urine WBC Clumps (None) /hpf Ur Squamous Epith Cells (0-4) /hpf Urine Bacteria (None) /hpf Hyaline Casts (0-2) /lpf Urine Mucus (None) /hpf Disposition Clinical Impression: Pyelonephritis Disposition: HOME SELF-CARE Condition: Stable Instructions (If sedation given, give patient instructions): Kidney Infection (ED) Additional Instructions: Please return to the Emergency Department if symptoms worsen or any other concerns. Prescriptions: Cephalexin [Keflex] 500 mg PO Q8HR #30 cap Ondansetron Odt [Zofran Odt] 4 mg PO Q8HR PRN #10 tab PRN Reason: Nausea Is patient prescribed a controlled substance at d/c from ED?: No Referrals: Bethel Guidry MD [Primary Care Provider] - 1-2 days Time of Disposition: 11:03
[2022-03-18 11:25] VITALS: PULSE 72
== END 2022-03-18 11:27 | disposition home or self-care (01) ==
LOC: EC 06:36
DX: N20.0 Calculus of kidney (principal); E78.5 Hyperlipidemia, unspecified; K21.9 Gastro-esophageal reflux disease without esophagitis; I10 Essential (primary) hypertension; E07.9 Disorder of thyroid, unspecified; Z87.891 Personal history of nicotine dependence; Z91.018 Allergy to other foods; Z79.82 Long term (current) use of aspirin; Z79.890 Hormone replacement therapy; Z79.899 Other long term (current) drug therapy
CPT/HCPCS: 36415; 80053; 82150; 83605; 83690; 85025; 81001; 87040; 87086; 74176; 99284; 96365; 96366; 96375; J2405; J0696; J1885

== ENCOUNTER → 2022-06-16 | Outpatient (CLI) | payer MEDICARE, OTHER ==
--- NOTE | 2022-06-16 16:51 | US ---
EXAMINATION TYPE: US abdomen limited DATE OF EXAM: 06/16/2022 COMPARISON: CT 2021 CLINICAL HISTORY: R74.01 ELEVATION OF LEVELS OF LIVER TRANSAMINASE L. Elevated transaminase level. TECHNIQUE: Multiple sonographic images of the right upper quadrant are obtained. FINDINGS: EXAM MEASUREMENTS: Liver Length: 20.5 cm Gallbladder Wall: 0.23 cm CBD: 0.95 cm Right Kidney: 11.6 x 5.6 x 4.7 cm CNA PER DIEM NOTES: Exam is extremely limited due to patient body habitus and gas. Pancreas: Appears hyperechoic. Limited. Liver: Enlarged with increased echogenicity and attenuation. Limited. Gallbladder: Possible internal echoes suggesting sludge versus artifact: 4.9 x 2.7 x 0.5 cm. Measure s 9.3 cm in length. Evidence for sonographic Hampton's sign: No CBD: Appears dilated Right Kidney: Limited. Hyperechoic focus seen within lower pole: 1.4 x 1.2 x 1.1 cm. IMPRESSION: 1. Hepatomegaly. 2. Sludge suspected within the gallbladder.
== END | disposition home or self-care (01) ==
LOC: RADUSWWP 08:05
PROVIDERS: ATTEND Internal Medicine
DX: R16.0 Hepatomegaly, not elsewhere classified (principal); R74.01 Elevation of levels of liver transaminase levels
CPT/HCPCS: 76705

== ENCOUNTER → 2023-08-03 | Outpatient (CLI) | payer MEDICARE, OTHER ==
--- NOTE | 2023-08-03 16:10 | BD ---
EXAMINATION TYPE: Axial Bone Density DATE OF EXAM: 08/03/2023 CLINICAL HISTORY: 68 years old Female. ICD-10 CODE: Z78.0 ASYMPTOMATIC MENOPAUSAL STA Height: 62 Weight: 261.2 FRAX RISK QUESTIONS: Alcohol (3 or more units per day): no Family History (Parent hip fracture): no Glucocorticoids (More than 3mos): History of Fracture in Adulthood: no Secondary Osteoporosis: 1. Type 1 Diabetes: no 2. Hyperthyroidism: no 3. Menopause before 45: no 4. Malnutrition: no 5. Chronic liver disease: no Rheumatoid Arthritis: no Current Tobacco Use: no RISK FACTORS HISTORY OF: Hip Fracture (Right/Left): no Spine Fracture: no History of Wrist Fracture: no Surgery to Spine/Hip(right/left)/Wrist (right/left): no MEDICATIONS: Thyroid Medications: Synthroid How Long: Since age 19 Osteoporosis Medications: no EXAM MEASUREMENTS: Bone mineral densitometry was performed using the [employer] System. Bone mineral density as measured about the Lumbar spine is: ----- L1-L4(G/cm2): 1.073 T Score Values are as follows: ----- L1: -0.8 ----- L2: -0.3 ----- L3: -1.3 ----- L4: -1.2 ----- L1-L4: -0.9 Z Score Values are as follows: ----- L1: -0.3 ----- L2: 0.2 ----- L3: -0.9 ----- L4: -0.7 ----- L1-L4: -0.5 Baseline Study Bone mineral density about the R hip (g/cm2): 1.023 Bone mineral density about the L hip (g/cm2): 1.070 T Score values are as follows: -----R Neck: -0.9 -----L Neck: -06 -----R Total: 0.1 -----L Total: 0.5 Z Score values are as follows: -----R Neck: -0.2 -----L Neck: 0.2 -----R Total: 0.5 -----L Total: 0.9 Baseline Study FRAX%s: The graph provided illustrates a 6.7 % chance for a major osteoporotic fx and a 0.4% chance f or the hips probability for fx in 10 years time. IMPRESSION: Normal (Values between +1 and -1 indicate normal bone mass). Consider repeating this study in 5 year s or sooner if there is some new clinical indication. NOTE: T-SCORE=SD OF THE YOUNG ADULT MEAN.
--- NOTE | 2023-08-04 10:01 | MM ---
Reason for Exam: Screening (asymptomatic). Last mammogram was performed 1 year(s) and 5 month(s) ago. Patient History: Menarche at age 15. First Full-Term at age 21. Hysterectomy at age 44. Daughter had breast cancer, age 45. Risk Values: Kristi 5 year model risk: 3.1%. NCI Lifetime model risk: 11.0%. Prior Study Comparison: 04/27/2017 Screening Mammogram, [facility]. 12/18/2019 Bilateral Screening Mammogram, [facility]. 03/12/2022 Bilateral MG 3D screening mammo w/cad, [facility]. Tissue Density: The breast tissue is heterogeneously dense. This may lower the sensitivity of mammography. Findings: Analyzed By CAD. There is no suspicious group of microcalcifications or new suspicious mass in either breast. Benign-appearing calcifications. Chronic nodularity bilateral breast. Overall Assessment: Benign, BI-RAD 2 Management: Screening Mammogram of both breasts in 1 year. . Patient should continue monthly self-breast exams. A clinical breast exam by your physician is recommended on an annual basis. This exam should not preclude additional follow-up of suspicious palpable abnormalities. Note on Kristi scores and lifetime risk: 1. A Kristi score greater than 3% is considered moderate risk. If this is the case, consider specialist referral to assess eligibility for a risk reducing agent. 2. If overall lifetime risk for the development of breast cancer is 20% or higher, the patient may qualify for future screening with alternating mammogram and breast MRI. Electronically signed and approved by: Pramod Latham M.D. Radiologis
== END | disposition home or self-care (01) ==
LOC: RADMAMWWP 08:43
PROVIDERS: ATTEND Internal Medicine
DX: Z12.31 Encounter for screening mammogram for malignant neoplasm of breast (principal); M85.89 Other specified disorders of bone density and structure, multiple sites; Z78.0 Asymptomatic menopausal state
CPT/HCPCS: 77063; 77067; 77080

== ENCOUNTER → 2024-03-09 | Outpatient (CLI) | payer MEDICARE, OTHER | END | disposition home or self-care (01) | LOC: LABWHC1 10:30 | PROVIDERS: ATTEND Orthopaedic Surgery | DX: Z01.818 Encounter for other preprocedural examination | CPT/HCPCS: 87070 ==

== ENCOUNTER 2024-04-03 10:42 | Observation (INO) | payer MEDICARE, OTHER ==
[2024-03-28 09:48] VITALS: BMI 55.7
--- NOTE | 2024-04-02 08:24 | P.HPOR ---
History of Present Illness H&P Date: 04/02/24 Chief Complaint: Left knee pain The patient is a 68-year-old retired for the past couple years. She notes pain with any weightbearing activities. She hasn't been buckling and giving way. She's tried medications in addition to home exercises without much relief. Review of Systems per HPI Past Medical History Past Medical History: GERD/Reflux, Hyperlipidemia, Hypertension, Osteoarthritis (OA), Sleep Apnea/CPAP/BIPAP, Thyroid Disorder Additional Past Medical History / Comment(s): uses CPAP, frequent back pain History of Any Multi-Drug Resistant Organisms: None Reported Past Surgical History: Hysterectomy, Joint Replacement, Orthopedic Surgery Additional Past Surgical History / Comment(s): RIGHT HEEL SPUR REMOVED, BILATERAL CARPAL TUNNEL RELEASE, TOTAL RIGHT KNEE Past Anesthesia/Blood Transfusion Reactions: No Reported Reaction Past Psychological History: Depression Smoking Status: Former smoker Past Alcohol Use History: None Reported Additional Past Alcohol Use History / Comment(s): STARTED SMOKING AT AGE 16 QUIT AT AGE 42 SMOKED 1PPD Past Drug Use History: Marijuana Additional Drug Use History / Comment(s): occasional use of edibles-instructed to refrain from use 24 hrs prior to procedure - Past Family History Mother Family Medical History: No Reported History Medications and Allergies Home Medications Medication Instructions Recorded Confirmed Type Escitalopram Oxalate [Lexapro] 20 mg PO QAM 07/25/20 03/28/24 History Levothyroxine Sodium [Synthroid] 150 mcg PO QAM 07/25/20 03/28/24 History Omeprazole [PriLOSEC] 20 mg PO AC-BRKFST 07/25/20 03/28/24 History hydroCHLOROthiazide 12.5 mg PO DAILY 07/25/20 03/28/24 History Amlodipine Besylate/Valsartan 0.5 tab PO QAM 01/06/22 03/28/24 History [Amlodipine-Valsartan 10-160 mg] Ezetimibe [Zetia] 10 mg PO HS 01/06/22 03/28/24 History Cetirizine HCl [Zyrtec] 10 mg PO HS 03/28/24 03/28/24 History Allergies Allergy/AdvReac Type Severity Reaction Status Date / Time strawberry Allergy Rash/Hives Verified 03/28/24 09:35 tree nut Allergy Anaphylaxis Verified 10/16/24 09:35 Physical Examination - Knee left Appearance: effusion Effusion grade: grade 2 Valgus alignment in stance: 10 degrees Tenderness with palpation: anterior, lateral Pain: throughout ROM Gait: limping ROM: extension: -10 degrees ROM: flexion: 100 degrees Crepitus with motion: Yes Strength: extension: 5/5 Strength: flexion: 5/5 Meniscal tests: medial meniscal tests: positive, lateral meniscal tests: positive, medial joint line pain: positive, lateral joint line pain: positive Results The patient is a well-developed well-nourished female approximately 5 foot 3, 300 pounds of endomorphic habitus. HEENT exam is nonfocal, neck is supple. She has painless passive motion of her left hip. Straight leg raise negative. She to about the medial and lateral joint line left knee. Collaterals are stable, Bharath was negative, Saira's is equivocal. Her distal neurovascular appears intact in the left lower extremity. - Diagnostic results Knee x-ray: image reviewed (X-rays of the left knee obtained the office show severe lateral and patellofemoral compartment osteoarthrosis) Assessment and Plan Assessment: Left knee severe lateral and patellofemoral compartment osteoarthrosis Obesity Plan: I talked to the patient at length regarding her condition along with treatment options. At this point she's quite symptomatic having pain and mechanical symptoms despite conservative measures. She's been working diligently on weight loss utilizing injectable medications along with dietary restriction and activity modifications. After a thorough discussion she opts to proceed with surgery. We will plan to proceed with left total knee arthroplasty. Risks and benefits were discussed at length in layman's terms. We will institute DVT prophylaxis postoperatively.
[~2024-04-03 10:42] MED LIST changes: -ALPRAZolam 0.25 MG TAB PO PRN; -ALPRAZolam 0.5 MG TAB PO PRN; -ASPIRIN 325 MG TAB PO STA; -ATORVASTATIN 80 MG TAB PO STA; -HEPARIN SODIUM,PORCINE 10,000 UNIT in SODIUM CHLORIDE 0.9% 1,000 ML IRRIGATION PRN; -HEPARIN SODIUM,PORCINE 2,500 UNIT in SODIUM CHLORIDE 0.9% 250 ML IRRIGATION PRN; +HYDROmorphone 0.5 MG/0.5 ML SYRINGE IVP PRN; +LIDOCAINE 1% (10MG/ML) FOR IV START INTRADERMA PRN; -NITROGLYCERIN SL TABS 0.4 MG TAB SUBLINGUAL PRN; -SODIUM CHLORIDE 0.9% 1,000 ML in EMPTY BAG 1 BAG IV SCH; +TRANEXAMIC 1,000 MG/100ML-NACL 1,000 MG in SALINE 1 100ML.BAG IVPB PRN; +fentaNYL (PF) 50 MCG/ML 2 ML AMP IV PRN; +fentaNYL (PF) 50 MCG/ML 2 ML AMP IVP PRN
[2024-04-03] MEDS: IV FLUID CONTINUATION 1,000 ML IV ONE (10:59)
[2024-04-03] MEDS: LACTATED RINGERS 1,000 ML IV SCH (11:17)
[2024-04-03] MEDS: MELOXICAM 7.5 MG TAB PO PRN (11:22)
[2024-04-03] MEDS: ONDANSETRON 4 MG/2 ML VIAL IVP ONE (11:22)
[2024-04-03] MEDS: ACETAMINOPHEN TAB 500 MG TAB PO PRN (11:22)
[2024-04-03] MEDS: DEXAMETHASONE SOD PHOSPHATE 4 MG/ML 1 ML VIAL IV ONE (11:23)
[2024-04-03] MEDS: MIDAZOLAM 2 MG/2 ML VIAL IV PRN (11:46)
--- NOTE | 2024-04-03 12:08 | P.ANPRN ---
Procedure Note - Anesthesia - Nerve Block Performed Left Agnieszkack Single Time Out Performed: Yes Date of Procedure: 04/03/24 Procedure Start Time: 11:45 Procedure Stop Time: 11:49 Location of Patient: PreOp Indication: Acute Post-Operative Pain, Analgesia, Requested by Surgeon Sedation Type: Sedate with meaningful contact maintained Preparation: Sterile Prep Position: Right Lateral Catheter: None Needle Types: Pajunk Needle Gauge: 21 Ultrasound used to visualize needle placement: Yes Ultrasound used to observe medication spread: Yes Injectate: 0.5% Ropivacaine (see comment for volume) (Ropiv 20ml+[id number]) Blood Aspirated: No Pain Paresthesia on Injection Noted: No Resistance on Injection: Normal Image Stored and Saved: Yes Events: Uneventful and Well Tolerated
--- NOTE | 2024-04-03 12:09 | P.ANPRN ---
Procedure Note - Anesthesia - Nerve Block Performed Left Adductor Canal Infusion Time Out Performed: Yes Date of Procedure: 04/03/24 Procedure Start Time: 11:49 Procedure Stop Time: 11:54 Location of Patient: PreOp Indication: Acute Post-Operative Pain, Analgesia, Requested by Surgeon Sedation Type: Sedate with meaningful contact maintained Preparation: Sterile Prep Position: Supine Catheter: Indwelling Needle Types: On-Q Ultrasound used to visualize needle placement: Yes Ultrasound used to observe medication spread: Yes Injectate: 0.5% Ropivacaine (see comment for volume) (Ropiv 20ml+Decadron 4mg) Blood Aspirated: No Pain Paresthesia on Injection Noted: No Resistance on Injection: Normal Image Stored and Saved: Yes Events: Uneventful and Well Tolerated
[2024-04-03] MEDS ORDERED: MIDAZOLAM 2 MG/2 ML VIAL ONE (12:49)
[2024-04-03] MEDS ORDERED: ROPIVACAINE 5 MG/ML 30 ML VIAL ONE (12:49)
[2024-04-03] MEDS ORDERED: PROPOFOL 10 MG/ML 20 ML VIAL IV ONE (12:49)
[2024-04-03] MEDS ORDERED: TRANEXAMIC 1,000 MG/100ML-NACL PREMIX BAG ONE (12:49)
[2024-04-03] MEDS ORDERED: PHENYLEPHRINE 10 MG/ML VIAL ONE (12:49)
[2024-04-03] MEDS ORDERED: fentaNYL (PF) 50 MCG/ML 2 ML AMP ONE (12:49)
[2024-04-03] MEDS ORDERED: DEXAMETHASONE SOD PHOSPHATE 4 MG/ML 1 ML VIAL ONE (12:49)
[2024-04-03] MEDS: ceFAZolin 3 GM in SODIUM CHLORIDE 0.9% 100 ML IVPB PRN (12:55)
[2024-04-03] MEDS: ceFAZolin 1,000 MG in SODIUM CHLORIDE 0.9% 1,000 ML IRRIGATION ONE (13:22)
[2024-04-03] MEDS: LACTATED RINGERS 1,000 ML IV ONE (13:55)
[2024-04-03] MEDS ORDERED: NALOXONE 0.4 MG/ML 1 ML VIAL IV PRN (14:29)
[2024-04-03] MEDS ORDERED: MAGNESIUM HYDROXIDE 2,400 MG/30 ML CUP PO PRN (14:29)
[2024-04-03] MEDS ORDERED: hydrOXYzine pamoate 25 MG CAP PO PRN (14:29)
--- NOTE | 2024-04-03 14:56 | P.OP ---
Date of Procedure: 04/03/24 Preoperative Diagnosis: Left knee severe tricompartmental osteoarthrosis Postoperative Diagnosis: Same Procedure(s) Performed: Left total knee arthroplastycementedposterior stabilized Implants: DePuy attune size 5 narrow cemented femoral component, size 4 cemented tibial component with a 14 x 50 mm tibial stem, 9 mm articular surface, 32 mm cemented patellar component. This is a posterior stabilized implant. Anesthesia: regional, spinal Surgeon: Forrest Peters [employer] Installer #1: Ralf Brady Estimated Blood Loss (ml): 50 Pathology: none sent Condition: stable Disposition: PACU Indications for Procedure: The patient is a 69-year-old female who presents with progressive left knee pain secondary to osteoarthrosis despite conservative measures. A discussion of the risks and benefits of operative intervention versus continued conservative measures was made with the patient. She opted to proceed with surgery. Operative risks include infection, neurovascular injury, fracture, development of blood clots, possible component loosening/failure and possible need for subsequent procedures was discussed. Informed consent was obtained. Operative Findings: As below Description of Procedure: The patient was brought to the operating room, and after induction of spinal anesthesia the left lower extremity was prepped and draped in a normal fashion. The tourniquet was inflated to 270 mm marker. A longitudinal incision extending 3 finger breaths above the superior pole of patella extending to the medial aspect the tibial tubercle was then made. The skin and subcutaneous tissues were divided sharply. Electrocautery was used for hemostasis. A medial parapatellar arthrotomy was performed. The medial soft tissues to include the superficial and deep portions of the medial collateral ligament were elevated subperiosteally. The patella was everted. A portion of the retropatellar fat pad was excised sharply. The anterior cruciate ligament was sacrificed. Blunt retractors were placed. A starting hole was made in the distal femur 1 cm anterior to the posterior cruciate ligament origin. An intramedullary femoral guide was then inserted planning on 5 valgus distal cut with 9 mm distal resection. The cutting block was pinned in place. The distal cut was then made. The posterior referencing sizing guide was utilized. I felt size 5 narrow was most appropriate. 3 of external rotation was built into the system and verified off the trans-epicondylar axis and the posterior condyles. The cutting block was pinned in place. The anterior, posterior, and chamfer cuts then made. Bone fragments were removed. The intercondylar guide was placed and the notch cut was made with a sagittal saw. The bone block was removed in one fragment. The trial component was then placed. There is good anterior to posterior and medial to lateral fit. The distal peg holes were drilled. The trial component was removed. Attention was then paid towards preparing the proximal tibia. An extra medullary guide was utilized in line with the tibial shaft and second metatarsal distally. I planned on 2 mm resection from the medial compartment. The cutting block was pinned in place. The proximal tibial cut was then made. The bone was removed in one fragment. The remnants of the medial and lateral menisci were excised at the capsular junction with electrocautery. The tibia sized most appropriately at size 4. The trial femoral and tibial components were placed along with a 9 mm articular surface. I was able to obtain full flexion and extension with internal and external rotation. After several flexion and extension cycles, the tibial rotation was marked with electrocautery line with the medial one third of the tibial tubercle. Attention was then paid towards preparing the patella. A patella reamer was utilized taking this down to 14 mm of bone stock. A good flush cut was made. The patella sized most appropriately 32 mm. The peg holes were dr gloria. The trial components placed. I had good patellofemoral tracking with no hands technique. The trial components were then removed. The tibia was prepared in the appropriate rotation with appropriate drill and keel punch. The posterior osteophytes were removed with a curved osteotome. The flexion and extension gaps were checked and felt to be symmetric at 9 mm. A trial components were then removed. The bony surfaces were prepared with pulsatile lavage and dried. The tibial component was then cemented place was fully seated. Excess cement was removed. The femoral component cemented place and was fully seated. Excess cement was removed. The trial 9 mm articular surface was placed and the knee was put in full extension. The patella component was cemented place. After the cement had sufficiently hardened, the knee was again taken through a range of motion. Again I was able to obtain full flexion and extension with varus and valgus stress. The trial 9 mm articular surface was removed and the final one inserted. This was fully seated. Care was taken to avoid any soft tissue interposition. Pulsatile lavage was again utilized. The medial parapatellar arthrotomy was closed with #2 Ethibond suture. The tourniquet was deflated with approximately 50 minutes total tourniquet time. Final hemostasis was obtained with the cautery. There was minimal bleeding therefore a deep drain was not placed. The subcutaneous tissues were reapproximated with interrupted 2-0 Vicryl sutures. The skin was reapproximated with 3-0 subcuticular strata fix suture. Skin tape and adhesive was applied. A sterile dressing was applied. The patient was awoken from sedation and transferred to recovery room in good condition. Blood loss was estimated at 50 mL. No complications were incurred. Sponge and needle counts were correct at the end of the case. Ralf RUIZ assisted during the major components of this case to include exposure, bone resection, implantation, and closure.
[2024-04-03] MEDS: ROPIVACAINE 1,100 MG, SODIUM CHLORIDE 0.9% 500 ML 330 ML, EMPTY PAIN BALL 1 EACH MISCELLANE PRN (15:04)
--- NOTE | 2024-04-03 15:39 | XR ---
EXAMINATION TYPE: XR knee limited LT DATE OF EXAM: 04/03/2024 COMPARISON: Outside radiograph 03/07/2024 HISTORY: 59-year-old female evaluation for postoperative abnormality in alignment TECHNIQUE: Two views FINDINGS: Images show placement of left total knee arthroplasty. Both distal femoral and proximal tib ial components of prosthesis are well seated without periprosthetic fracture. Alignment grossly anato yissel. There is anterior soft tissue swelling with scattered soft tissue air as well as intra-articular air related to recent operation. IMPRESSION: Uncomplicated postoperative appearance left total knee arthroplasty. [facility], , 04/03/2024 3:36 PM
[2024-04-03] MEDS: ONDANSETRON 4 MG/2 ML VIAL IVP PRN (16:54)
[2024-04-03] MEDS: HYDROcodone/APAP 7.5-325MG 1 EACH TAB PO PRN (17:29)
[2024-04-03] MEDS: HYDROmorphone 1 MG/ML 1 ML SYRINGE IM PRN (18:15)
--- NOTE | 2024-04-03 18:15 | P.CONS ---
History of Present Illness - Reason for Consult Consult date: 04/03/24 - History of Present Illness 69 year old F with PMH of HTN, Depression, HLD, Hypothyroidism, GERD presents to [facility] for elective surgery. She underwent left total knee arthroplasty with Dr. Peters on 04/03. [facility] consulted for medical management of this patient. Patient was seen and examined. She reports 8/10 pain in her left knee. No other complaints. General: non toxic, no distress, appears at stated age Derm: warm, dry Head: atraumatic, normocephalic, symmetric Eyes: EOMI, no lid lag, anicteric sclera Mouth: no lip lesion, mucus membranes moist Cardiovascular: S1S2 reg, no murmur Lungs: CTA bilateral, no rhonchi, no rales, no accessory muscle use Ext: no gross muscle atrophy, no edema, no contractures, L knee wrapped dressing c/d/i Neuro: no focal neuro deficits Psych: Alert, oriented, appropriate affect Based on my assessment of this patient, this patient meets a high complexity level of care. HTN: Amlodipine 10-160 mg 1/2 tab PO QD. HCTZ 12.5 mg PO QD. Depression: Lexapro 20 mg PO QD. HLD: Zetia 10 mg PO QHS. Hypothyroidism: Synthroid 150 mg PO QD. GERD: Prilosec 20 mg PO QD. Left total knee arthroplasty POD 0 CODE STATUS: FULL CODE DVT Prophylaxis: Xarelto. GI Prophylaxis: Prilosec. Designated medical POA if patient is not able to make medical decisions for themselves: I have reviewed the following business system consultant notes: OR note. I have reviewed the results of the following tests: I have ordered the following tests: I have discussed the care of this patient with the following independent historian: RN, . I have independently interpreted the following test below: I have discussed the management of this patient with the following physician: Past Medical History Past Medical History: GERD/Reflux, Hyperlipidemia, Hypertension, Osteoarthritis (OA), Sleep Apnea/CPAP/BIPAP, Thyroid Disorder Additional Past Medical History / Comment(s): uses CPAP, frequent back pain History of Any Multi-Drug Resistant Organisms: None Reported Past Surgical History: Hysterectomy, Joint Replacement, Orthopedic Surgery Additional Past Surgical History / Comment(s): RIGHT HEEL SPUR REMOVED, BILATERAL CARPAL TUNNEL RELEASE, TOTAL RIGHT KNEE Past Anesthesia/Blood Transfusion Reactions: No Reported Reaction Past Psychological History: Depression Smoking Status: Former smoker Past Alcohol Use History: None Reported Additional Past Alcohol Use History / Comment(s): STARTED SMOKING AT AGE 16 QUIT AT AGE 42 SMOKED 1PPD Past Drug Use History: Marijuana Additional Drug Use History / Comment(s): occasional use of edibles-instructed to refrain from use 24 hrs prior to procedure - Past Family History Mother Family Medical History: No Reported History Medications and Allergies Home Medications Medication Instructions Recorded Confirmed Type Escitalopram Oxalate [Lexapro] 20 mg PO QAM 07/25/20 04/03/24 History Levothyroxine Sodium [Synthroid] 150 mcg PO QAM 07/25/20 04/03/24 History Omeprazole [PriLOSEC] 20 mg PO AC-BRKFST 07/25/20 04/03/24 History hydroCHLOROthiazide 12.5 mg PO DAILY 07/25/20 04/03/24 History Amlodipine Besylate/Valsartan 0.5 tab PO QA 01/06/22 04/03/24 History [Amlodipine-Valsartan 10-160 mg] Ezetimibe [Zetia] 10 mg PO HS 01/06/22 04/03/24 History Cetirizine HCl [Zyrtec] 10 mg PO HS 03/28/24 04/03/24 History Allergies Allergy/AdvReac Type Severity Reaction Status Date / Time strawberry Allergy Rash/Hives Verified 04/03/24 11:07 tree nut Allergy Anaphylaxis Verified 04/03/24 11:07 Physical Exam Vitals: Vital Signs Temp Pulse Resp BP Pulse Ox 04/03/24 15:53 97.7 F 59 L 17 152/85 97 04/03/24 15:30 58 L 18 137/72 97 04/03/24 15:15 57 L 18 138/75 97 04/03/24 15:00 64 18 133/62 97 04/03/24 14:52 97 F L 65 18 143/67 97 04/03/24 12:07 68 16 117/63 97 04/03/24 11:02 97.8 F 64 15 138/65 97 Intake and Output 04/03/24 04/03/24 04/03/24 06:59 14:59 22:59 Intake Total 1251 Output Total 50 Balance 1201 Intake: IV 1251 Output: Estimated Blood Loss 50 Other: Weight 137.3 kg 137.3 kg
[2024-04-03] MEDS: EZETIMIBE 10 MG TAB PO SCH (22:06)
[2024-04-03] MEDS: SENNOSIDES-DOCUSATE SODIUM 1 EACH TAB PO SCH (22:06)
[2024-04-03] MEDS: LORATADINE 10 MG TAB PO SCH (22:06)
[2024-04-03] MEDS: ceFAZolin 3 GM in SODIUM CHLORIDE 0.9% 100 ML IVPB SCH (22:06)
[2024-04-04] MEDS: HYDROmorphone 1 MG/ML 1 ML SYRINGE IVP PRN (02:40)
[2024-04-04] MEDS: LEVOTHYROXINE 75 MCG TAB PO SCH (06:08)
[2024-04-04] MEDS: HYDROcodone/APAP 5-325MG 1 EACH TAB PO PRN (06:08)
[2024-04-04 07:09] VITALS: RESP 18
[2024-04-04] MEDS: PANTOPRAZOLE 40 MG TABLET PO SCH (08:07)
[2024-04-04] MEDS: VALSARTAN 80 MG TAB PO SCH (08:07)
[2024-04-04] MEDS: RIVAROXABAN 10 MG TAB PO SCH (08:08)
[2024-04-04] MEDS: ESCITALOPRAM 20 MG TAB PO SCH (08:08)
[2024-04-04] MEDS: hydroCHLOROthiazide 12.5 MG CAP PO SCH (08:08)
[2024-04-04] MEDS: amLODIPine 5 MG TAB PO SCH (08:08)
--- NOTE | 2024-04-04 08:30 | P.PN ---
Progress Note - Text Progress Note Date: 04/04/24 Postoperative day # 1 status post total knee arthroplasty, and adductor canal catheter placed for postoperative analgesia, currently at ropivacaine 0.2% 8 mL per hour and continuous infusion, visual analogue scale is 3/10, patient using oral pain medication for breakthrough pain. Assessment and plan= Acute postoperative pain, adductor canal catheter for pain control, pain is well controlled we'll continue the same management.
[2024-04-04 08:51] LABS: Basophils # (A) 0.02 X 10*3/uL (0.00-0.10); Basophils % (A) 0.2 %; Eosinophils # (A) 0 X 10*3/uL (0.04-0.35); Eosinophils % (A) 0 %; HCT 33.8 % (37.2-46.3); HGB 11.8 g/dL (12.0-15.0); Lymphocytes % (A) 9.7 %; MCH 31.9 pg (27.0-32.0); MCHC 34.9 g/dL (32.0-37.0); MCV 91.4 FL (80.0-97.0); Mean Platelet Volume 10.6 FL (9.5-12.2); Monocytes # (A) 0.55 X 10*3/uL (0.20-1.00); Monocytes % (A) 5.9 %; NRBC Per 100 WBC 0 X 10*3/uL (0.00-0.01); Neutrophils # (A) 7.73 X 10*3/uL (1.80-7.70); Neutrophils % (A) 83.4 %; Platelet Count 176 X 10*3/uL (140-440); RDW 12.2 % (11.5-14.5); WBC 9.27 X 10*3/uL (4.50-10.00)
--- NOTE | 2024-04-04 11:25 | P.PN ---
Subjective Progress Note Date: 04/04/24 69 year old F with PMH of HTN, Depression, HLD, Hypothyroidism, GERD presents to [facility] for elective surgery. She underwent left total knee arthroplasty with Dr. Peters on 04/03. [facility] consulted for medical management of this patient. 04/04 Patient was seen and examined. Feeling well. Working with PT and OT. Urinating freely. No BM but passing gas. CBC significant for RBC 3.7, Hg 11.8, Hct 33.8. General: non toxic, no distress, appears at stated age Derm: warm, dry Head: atraumatic, normocephalic, symmetric Eyes: EOMI, no lid lag, anicteric sclera Mouth: no lip lesion, mucus membranes moist Cardiovascular: S1S2 reg, no murmur Lungs: CTA bilateral, no rhonchi, no rales, no accessory muscle use Ext: no gross muscle atrophy, no edema, no contractures, L knee wrapped dressing c/d/i Neuro: no focal neuro deficits Psych: Alert, oriented, appropriate affect Based on my assessment of this patient, this patient meets a high complexity level of care. Acute blood loss anemia which is an expected result of surgery. HTN: BP 132/75. Amlodipine 10-160 mg 1/2 tab PO QD. HCTZ 12.5 mg PO QD. Depression: Lexapro 20 mg PO QD. HLD: Zetia 10 mg PO QHS. Hypothyroidism: Synthroid 150 mg PO QD. GERD: Prilosec 20 mg PO QD. Left total knee arthroplasty POD 1 CODE STATUS: FULL CODE DVT Prophylaxis: Xarelto. GI Prophylaxis: Prilosec. Designated medical POA if patient is not able to make medical decisions for themselves: I have reviewed the following professional employer consultant notes: Anesthesia note. I have reviewed the results of the following tests: CBC. I have ordered the following tests: I have discussed the care of this patient with the following independent historian: I have independently interpreted the following test below: I have discussed the management of this patient with the following physician: Patient is medically stable for discharge home. Advised aggressive bowel regimen. Med rec completed. Objective - Vital Signs Vital signs: Vital Signs Temp 97.7 F 04/04/24 07:08 Pulse 79 04/04/24 07:08 Resp 18 04/04/24 07:08 BP 132/75 04/04/24 07:08 Pulse Ox 96 04/04/24 07:08 FiO2 Intake & Output 04/03/24 04/04/24 04/04/24 18:59 06:59 18:59 Intake Total 1571 Output Total 50 Balance 1521 Weight 137.3 kg Intake: IV 1251 Oral 320 Output: Estimated Blood Loss 50 Other: Voiding Method Toilet Toilet # Voids 1 1 - Labs CBC & Chem 7: 04/04/24 03:22 Labs: Abnormal Lab Results - Last 24 Hours (Table) 04/04/24 Range/Units 03:22 RBC 3.70 L (4.10-5.20) X 10*6/uL Hgb 11.8 L (12.0-15.0) g/dL Hct 33.8 L (37.2-46.3) % Immature Gran # 0.07 H (0.00-0.04) X 10*3/uL Neutrophils # 7.73 H (1.80-7.70) X 10*3/uL Eosinophils # 0 L (0.04-0.35) X 10*3/uL
--- NOTE | 2024-04-04 12:57 | P.DS ---
Providers Date of admission: 04/03/2024 Expected date of discharge: 04/04/24 Attending physician: Forrest Peters Consults: 04/03/24 14:29 Consult Physician Routine Consulting Provider: Nathaniel Enriquez Consult Reason/Comments: medical management s/p left total knee arthroplasty Do you want consulting provider notified?: Yes Primary care physician: Patricia Choudhury DO Hospital Course: Date of admission: 04/03/2024 Date of discharge: 04/04/2024 Admission diagnosis: left knee Osteoarthritis Discharge diagnosis: same Attending physician: Dr. Peters Surgical procedures: Left Total knee arthroplasty Brief history: Patient is a 69-year-old female with a history of progressive primary left knee osteoarthritis. At this point patient has failed conservative treatment measures and has opted to proceed with a elective left total knee arthroplasty. Hospital course: Details of patient's surgery can be found in operative report. Patient tolerated the procedure well and was subsequently transported to orthopedic floor. Patient's orthopeidc and medical care was provided daily. Patient had daily laboratory tests performed for evaluation of overall blood counts. Patient had daily physical therapy to include strengthening range of motion as well as education with walker ambulation. Patient was treated with Xarelto for their postoperative DVT prophylaxis during their inpatient stay. Patient was noted to have a relatively uneventful postoperative course. Patient reported satisfactory pain control with oral pain medications by postoperative day 1. Patient showed satisfactory progress with physical therapy. Patient moved steadily through the program and had no difficulty meeting the goals by postoperative day 1. Given patient's otherwise satisfactory course and having met physical therapy goals, plan is to discharge patient home without services on postoperative day 1. Discharge condition/disposition: Patient will be discharged home with health [facility] in stable condition. Discharge medications: Instructions are given on resumption of patient's normal daily medications per primary care recommendation, in addition patient will be prescribed [place]; senna; Eliquis 2.5 mg twice a day 2 weeks.. Discharge instructions: 1. Wound care and infection precautions, keep incision dry and covered while showering, no lotions, creams, moisturizers. No soaking, tubs, pools, hottubs. Do not scrub over the incision. 2. Weight-bear as tolerated with walker / cane until follow-up. 3. Ice and elevate when necessary. Do not exceed 20 minutes per hour with ice pack. 4. Utilize compression sleeve until seen at first follow up appointment. 5. Visiting nursing care. 6. Home physical therapy including home CPM. 7. Pain meds and anticoagulants per prescription. 8. Pain medication has potential to cause constipation. Increase oral fluid and fiber intake. Contact primary care provider if you have not had a bowel movement within 48 hours after discharge 9. No anti-inflammatory medication until discussed at first post operative visit, this including Motrin, Aleve, Mobic, Diclofenac. 10. Follow up in office at 2 weeks postop with Royer Byrd PA-C / Ralf Brady PA-C 11. Follow up with your primary care doctor 7-10 days after discharge. 12. Contact [facility] with any questions, . Assessment: Left knee osteoarthritis Procedures: Left total knee arthroplasty Patient Condition at Discharge: Good Plan - Discharge Summary Discharge Rx Participant: Yes New Discharge Prescriptions: Continue Omeprazole [PriLOSEC] 20 mg PO AC-BRKFST hydroCHLOROthiazide 12.5 mg PO DAILY Levothyroxine Sodium [Synthroid] 150 mcg PO QAM Escitalopram Oxalate [Lexapro] 20 mg PO QAM Ezetimibe [Zetia] 10 mg PO HS Amlodipine Besylate/Valsartan [Amlodipine Besylate/Valsartan 10-160 mg] 0.5 tab PO QAM Cetirizine HCl [Zyrtec] 10 mg PO HS Discharge Medication List Escitalopram Oxalate [Lexapro] 20 mg PO QAM 07/25/20 [History] Levothyroxine Sodium [Synthroid] 150 mcg PO QAM 07/25/20 [History] Omeprazole [PriLOSEC] 20 mg PO AC-BRKFST 07/25/20 [History] hydroCHLOROthiazide 12.5 mg PO DAILY 07/25/20 [History] Amlodipine Besylate/Valsartan [Amlodipine Besylate/Valsartan 10-160 mg] 0.5 tab PO QAM 01/06/22 [History] Ezetimibe [Zetia] 10 mg PO HS 01/06/22 [History] Cetirizine HCl [Zyrtec] 10 mg PO HS 03/28/24 [History] Follow up Appointment(s)/Referral(s): Ralf Brady, HEATHER [PHYSICIAN DENTAL EQUIPMENT INSTALLER AND SERVICER] - 04/18/24 9:20 am [facility] [NON-STAFF] - As Needed Patient Instructions/Handouts: Knee Replacement (GEN) Activity/Diet/Wound Care/Special Instructions: Continuous Passive Motion knee machine ordered by 's office through [employer]: #[phone] Orthopedic Discharge Instructions: 1. Wound care and infection precautions, keep incision dry and covered while showering, no lotions, creams, moisturizers. No soaking, pools, hot tubs. Do not scrub over incision. 2. Weight-bear as tolerated with walker / cane until follow-up. 3. Ice and elevate when necessary. Do not exceed 20 minutes per hour with ice pack. 4. Utilize compression sleeve until seen at first follow up appointment. 5. Pain meds and anticoagulants per prescription. 6. Pain medication has potential to cause constipation. Increase oral fluid and fiber intake. Contact primary care provider if you have not had a bowel movement within 48 hours after discharge. 7. No anti-inflammatory medication until discussed at first post operative visit, this including Motrin, Aleve, Mobic, Diclofenac. 8. Follow up in office at 2 weeks postop with Royer Byrd PA-C / Ralf Brady PA-C 9. Follow up with your primary care doctor 7-10 days after discharge. 10. Contact [facility] with any questions, . Keep incision clean, dry, intact. While showering, cover fusion tape with Saran wrap. Keep fusion tape on until follow-up appointment office in 2 weeks
--- NOTE | 2024-04-04 13:26 | P.PN ---
Subjective Progress Note Date: 04/04/24 Principal diagnosis: Left knee osteoarthritis Patient was seen at bedside this morning lying semirecumbent position with a dressing present over the left knee. Patient states she is familiar with a recovery from joint replacement and she states she had her right knee surgery performed about 6 years ago. Patient says she did develop therapy although walked down the hallway and up and down steps without issue. She states she does have a walker home. Patient denies any other issues at this time. She says she is going for going home. Objective - Vital Signs Vital signs: Vital Signs Temp 97.7 F 04/04/24 07:08 Pulse 79 04/04/24 07:08 Resp 18 04/04/24 07:08 BP 132/75 04/04/24 07:08 Pulse Ox 96 04/04/24 07:08 FiO2 Intake & Output 04/03/24 04/04/24 04/04/24 18:59 06:59 18:59 Intake Total 1571 Output Total 50 Balance 1521 Weight 137.3 kg Intake: IV 1251 Oral 320 Output: Estimated Blood Loss 50 Other: Voiding Method Toilet Toilet # Voids 1 1 - Exam Left knee: Incision is clean, dry, and intact. The exofin fusion tape is in good condition. There is minimal soft tissue swelling and ecchymosis surrounding the medial and lateral aspects of the incision. Calf is soft, no tenderness with palpation. Plantar flexion, dorsiflexion, EHL, FHL are intact. Sensory exam to light touch throughout the extremity is intact, dorsal pedis pulses 2+. - Labs CBC & Chem 7: 04/04/24 03:22 Labs: Abnormal Lab Results - Last 24 Hours (Table) 04/04/24 Range/Units 03:22 RBC 3.70 L (4.10-5.20) X 10*6/uL Hgb 11.8 L (12.0-15.0) g/dL Hct 33.8 L (37.2-46.3) % Immature Gran # 0.07 H (0.00-0.04) X 10*3/uL Neutrophils # 7.73 H (1.80-7.70) X 10*3/uL Eosinophils # 0 L (0.04-0.35) X 10*3/uL Assessment and Plan Assessment: 1. Left knee osteoarthritis - Postoperative day 1 status post left total knee arthroplasty Plan: 1. Left knee osteoarthritis- surgery performed yesterday, Tuesday, left total knee arthroplasty. Patient stable at bedside this morning. Patient did do well with PT/OT. Patient does have a walker for home. Discharge home today with health services. 2. Appreciate medical management 3. Pain management - norco; tylenol; gabapentin 4. DVT prophylaxis - scds, luis miguel jerry; Eliquis 5. GI prophylaxis - senna 6. PT/OT -weightbearing as tolerated with walker 7. Encourage incentive spirometer use 8. Discharge planning - discharge home today with health services Time with Patient: Less than 30
[2024-04-04 14:06] VITALS: BP 130/72; PULSE 76; TEMP 98.2
== END 2024-04-04 15:21 | disposition home health service (06) ==
LOC: OR 10:42 → 4SSUR 10:43 → OR 10:43 → 4SSUR 15:03
PROVIDERS: ADMIT Orthopaedic Surgery; ATTEND Orthopaedic Surgery
DX: M17.12 Unilateral primary osteoarthritis, left knee (principal); D62 Acute posthemorrhagic anemia; E66.9 Obesity, unspecified; E03.9 Hypothyroidism, unspecified; E78.5 Hyperlipidemia, unspecified; F32.A Depression, unspecified; K21.9 Gastro-esophageal reflux disease without esophagitis; I10 Essential (primary) hypertension; Z79.899 Other long term (current) drug therapy; Z79.890 Hormone replacement therapy; Z87.891 Personal history of nicotine dependence; Z91.018 Allergy to other foods
CPT/HCPCS: 29886; 29888; 29880; 97161; 64999; 64448; 85025; 73560; G0378 ×2; C1713 ×2; C1776; C1751; J2250; J1100; J0690 ×3; J2405; J3010; J1171 ×2; J2795; J2704; J2371